=== PATIENT | male | born 1955 | race Caucasian/White ===

== ENCOUNTER → 2017-06-18 | Outpatient (CLI) | payer BC ==
--- NOTE | 2017-06-22 20:07 | SLEEPHOME ---
DATE OF PROCEDURE: 06/18/2017 REFERRING PHYSICIAN: Amara Mulligan INTERPRETATION: Diagnostic home sleep testing was performed due to concern for the obstructive sleep apnea syndrome in this patient with a history of excessive somnolence and snoring. For testing, a NOX-T3 respiratory monitoring device was used. Continuous record was made of pulse, oxygen saturation, airflow, chest and abdominal strain and body position. 10 hours and 59 minutes of data were reviewed. There were 7 hours and 9 minutes marked as time in bed. During the interval marked time in bed, there were 37 respiratory events identified of 10 seconds in duration or greater for a respiratory event index of 5.2. The events were primary obstructive. Baseline pulse rate 64 beats per minute. Pulse rate ranged 54 to 92. Baseline saturation 92%. Lowest oxygen saturation 88%. Testing was performed in primarily the nonsupine position. IMPRESSION: Abnormal home sleep testing with repetitive respiratory events and oxygen desaturations to 88% with a respiratory event index of 5.2 consistent with the obstructive sleep apnea syndrome. RECOMMENDATION: The patient should be referred for formal sleep evaluation and in laboratory pressure titration.
== END ==
LOC: M SLEEP HO 08:14
PROVIDERS: ATTEND Nurse Practitioner Adult Health
DX: G47.30 Sleep apnea, unspecified (principal)

== ENCOUNTER → 2022-07-23 | Outpatient (CLI) | payer BC, MEDICARE ==
[~2022-07-23] MED LIST: SERT25TA21 PO; SERT50TA29 PO
== END ==
LOC: M LABSMTC 11:58
PROVIDERS: ATTEND Anesthesiology
DX: Z01.812 Encounter for preprocedural laboratory examination (principal); Z20.822 Contact with and (suspected) exposure to COVID-19

== ENCOUNTER 2022-07-27 09:00 | Day surgery (SDC) | payer BC, MEDICARE ==
[~2022-07-27] VITALS: Ht 177.8 cm; Wt 88.5 kg
[~2022-07-27 09:00] MED LIST changes: +NS 1,000 ML IV ONE
[2022-07-27] MEDS ORDERED: propofoL 200 MG/20 ML VIAL As Ordered ONE (10:33)
[2022-07-27] MEDS ORDERED: LIDOCAINE 2% 100MG/5ML SDV (FOR ANES.) As Ordered ONE (10:33)
[2022-07-27 11:07] VITALS: BP 117/88
== END 2022-07-27 11:31 | disposition home or self-care (01) ==
LOC: M OPP 09:00
PROVIDERS: ATTEND Surgery
DX: Z12.11 Encounter for screening for malignant neoplasm of colon (principal); Z79.899 Other long term (current) drug therapy; Z99.89 Dependence on other enabling machines and devices; G47.30 Sleep apnea, unspecified; F32.9 Major depressive disorder, single episode, unspecified; F41.9 Anxiety disorder, unspecified